=== PATIENT | male | born 1935 | race Caucasian/White ===

== ENCOUNTER 2018-11-16 19:57 | Inpatient (IN) | payer MEDICARE, OTHER ==
[2018-11-16] MEDS ORDERED: traMADol HCl 50 MG TAB PO PRN (22:03)
[2018-11-16] MEDS ORDERED: Dextrose 5% in Water 1,000 ML IV PRN (22:07)
[2018-11-16] MEDS ORDERED: Dextrose 50% Abboject 50 ML SYRINGE IVP PRN (22:07)
[2018-11-16] MEDS ORDERED: Nitroglycerin 0.4 MG TAB (25 Tab Bottle) SL PRN (22:08)
[2018-11-16] MEDS ORDERED: Metoprolol Tartrate 25 MG TAB PO SCH ×2 (22:30→23:00)
[2018-11-16] MEDS ORDERED: rOPINIRole HCl 0.25 MG TAB PO SCH ×2 (22:45→23:00)
[2018-11-16] MEDS ORDERED: Atorvastatin Calcium 10 MG TAB PO SCH (22:45)
[2018-11-16] MEDS ORDERED: Meclizine HCl 25 MG TAB PO SCH (23:00)
[2018-11-16] MEDS ORDERED: Lantus 1000 UNITS/10 ML VIAL SC SCH (23:00)
[2018-11-16] MEDS: HumaLOG 300 UNITS/3 ML VIAL SC PRN (23:05)
[2018-11-17 05:51] LABS: ALT (SGPT) 18 U/L (8-55); AST (SGOT) 26 U/L (5-34); Albumin 3.4 g/dL (3.4-4.8); Alkaline Phosphatase 65 U/L (40-150); Anion Gap 17 mmol/L (10-20); BUN (Urea Nitrogen) 25 mg/dL (8.4-25.7); Calc. Creatinine Clearance 60 mL/min (70-130); Calcium 9.1 mg/dL (7.8-10.44); Carbon Dioxide 25 mmol/L (23-31); Chloride 99 mmol/L (98-107); Estimated GFR-MDRD 63; Globulin 3.4 g/dL (2.4-3.5); Glucose 224 mg/dL (83-110); Potassium 3.6 mmol/L (3.5-5.1); Protein, Total 6.8 g/dL (5.8-8.1); Sodium 137 mmol/L (136-145)
[2018-11-17 05:53] LABS: Bilirubin, Total 0.4 mg/dL (0.2-1.2)
[2018-11-17 06:08] LABS: Eosinophils 4 % (0-10); Hemoglobin 10.3 g/dL (14.0-18.0); Hypochromia SLIGHT = 6-15 cells (100X) (0-5/hpf); Lymphocytes 26 % (21-51); MDiff Complete? YES; Macrocytosis SLIGHT = 6-15 cells (100X) (0-5/hpf); Mean Corpuscular HGB CONC 33.1 g/dL (32.0-36.0); Mean Corpuscular Hemoglobin 29.7 pg (27.0-31.0); Mean Corpuscular Volume 89.8 fL (78.0-98.0); Mean Platelet Volume 7.4 fL (7.4-10.4); Microcytosis SLIGHT = 6-15 cells (100X) (0-5/hpf); Monocytes 6 % (0-10); Neutrophil 56 % (42-75); Platelet Count 250 thou/uL (130-400); Platelet Morphology Comment Appears Adequate; RBC Distribution Width 12.8 % (11.5-14.5); RBC Morphology Abnormal; Reactive Lymphocytes 8 % (0-10); Red Blood Cell (RBC) Count 3.46 mill/uL (4.70-6.10); White Blood Cell (WBC) Count 7.9 thou/uL (4.8-10.8)
[2018-11-17] MEDS: Potassium Chloride 10 MEQ TAB PO SCH (08:12)
[2018-11-17] MEDS: HumaLOG 300 UNITS/3 ML VIAL SC PRN ×4 (08:20→20:52)
[2018-11-17] MEDS: Metoprolol Tartrate 25 MG TAB PO SCH ×2 (08:21→20:52)
[2018-11-17] MEDS: Aspirin Chewable 81 MG TAB PO SCH (08:21)
[2018-11-17] MEDS: metFORMIN 500 MG TAB PO SCH ×2 (08:21→16:14)
[2018-11-17] MEDS: Multivitamin W/ Minerals 1 TAB PO SCH (08:21)
[2018-11-17] MEDS: FLUoxetine HCl 20 MG CAP PO SCH (08:21)
[2018-11-17] MEDS ORDERED: Loratadine 10 MG TAB PO PRN (09:00)
[2018-11-17] MEDS: Meclizine HCl 25 MG TAB PO SCH ×2 (09:09→20:51)
--- NOTE | 2018-11-17 14:38 | HP ---
CHIEF COMPLAINT: Weakness and deconditioning following bypass surgery to the heart. HISTORY OF PRESENT ILLNESS: The patient is a very pleasant 83-year-old white male, who has a history of hypertension, coronary artery disease, diabetes type 2 insulin requiring, and hyperlipidemia. He has previously undergone 5 stents to his heart, but recently had a stress test that was abnormal. He was admitted to [facility] on 11/09. The patient found that his stents had occluded. On 11/12/2018 , the patient underwent a coronary artery bypass x5. Postop course was unremarkable. The patient though was left very weak and needing assistance with his ADLs and had still some gait abnormality. He was walking with the use of a walker. His daughter said that he had just a little bit of confusion, which was improving. The patient was transferred to [facility] on the evening of 11/16/2018 for purpose of physical therapy and occupational therapy while he convalesces from his recent heart surgery. The patient was seen early on the morning of 11/17/2018. He said he is doing better, just still weak. His daughter said his memory is still not quite back to normal, but much better. The patient said he is just sore along the sternal incision, otherwise he thinks he is doing good. PAST HISTORY: Coronary artery disease stents x5 been placed in 2016. These currently had occluded and the patient became symptomatic and underwent coronary artery bypass x5 on 11/12/2018, diabetes type 2 insulin requiring and complicated by insulin resistance requiring large dose of Lantus and Humalog, hypertension, hyperlipidemia, diverticulosis of the colon, restless legs syndrome, peripheral neuropathy, and generalized osteoarthritis. The patient has had recurrent pneumothorax on the left chest and required surgery with talc pleurodesis. The patient has also had surgery on his right knee, left ankle. During his recent admission, he underwent a heart catheterization that showed severe three-vessel coronary artery disease. Echo showed EF of 60% and inferior and anterior hypokinesis. No significant valve disease. PRESENT MEDICINES: 1. Aspirin 81 mg daily. 2. Atorvastatin 10 mg at bedtime. 3. Fluoxetine 20 mg daily. 4. Lantus 85 units subcu at bedtime. 5. Humalog. The patient says at home he was using a sliding scale that was usually 20 insulin before meals and at times, would require more. Could not remember exactly how this was done at home. 6. Theragran-M one a day. 7. Loratadine 10 mg daily p.r.n. 8. Meclizine 12.5 mg b.i.d. 9. Metformin 500 mg b.i.d. 10. Metoprolol tartrate 25 mg b.i.d. 11. Nitroglycerin 0.4 mg sublingual every 5 minutes p.r.n. chest pain. 12. Klor-Con 10 mEq daily. 13. Ropinirole, that is Requip 0.25 mg at bedtime. 14. Tramadol 50 mg one or two every 8 hours as needed for pain. ALLERGIES: DULAGLUTIDE, TICAGRELOR, AND TETANUS. REVIEW OF SYSTEMS: GENERAL: The patient said he is doing better, just still weak and having soreness in his anterior chest. HEAD AND NECK: No complaints. PULMONARY: No shortness of breath. CARDIOVASCULAR: Just a soreness along the sternal incision. GASTROINTESTINAL: No nausea, vomiting, or change in bowel habits. GENITOURINARY: No problem. ADLS: The patient was independent of his ADLs, would still manage his instrumental ADLs. HABITS: The patient stopped smoking in 1984. Alcohol, none. SOCIAL HISTORY: The patient is . The patient says he lives alone, but has family that lives close. CODE STATUS: Full code. PHYSICAL EXAMINATION: GENERAL: Shows a very pleasant 83-year-old white male, who is sitting up on the side of the bed. He is alert and talkative. Recognized me. He appears in no acute distress. VITAL SIGNS: Show a temperature of 97.4, pulse 99, respirations 16, O2 saturation 96% on 2 L, blood pressure 129/62. His weight is 185. HEENT: His head is normocephalic and atraumatic. Ears, normal. Nose, normal. Mouth and throat, normal. NECK: Carotids are equal and strong. No bruits. Thyroid, not enlarged. LUNGS: Clear. HEART: Regular rate. No murmurs. CHEST: The patient has a sternal incision and is healing well, and there are 2 incisions in the xiphoid area from the chest tubes, that have been removed that are healing. ABDOMEN: Soft and nontender. EXTREMITIES: No edema. NEUROLOGIC: The patient has generalized weakness, but nonfocal. He is oriented to place and situation, but has a little trouble remembering some of his historical information. IMPRESSION: 1. Generalized weakness and deconditioning. a. Following coronary artery bypass surgery x5 on 11/12/2018. b. Complicated by gait abnormality, stabilized with a walker. 2. Status post hospitalization at [facility] from 11/09 to 11/16/2018 for severe triple-vessel coronary artery disease, for which he underwent coronary artery bypass x5 on 11/12/2018. 3. Coronary artery disease. a. Status post stent placement, 2016. b. Heart catheterization on 11/09/2018 showed severe triple-vessel disease and blockage of stents. c. Status post coronary artery bypass surgery x5 on 11/12/2018. d. Doing well other than the deconditioning as of 11/17/2018. 4. Diabetes mellitus type 2. a. Insulin-dependent and complicated by insulin resistance. b. Complicated by peripheral neuropathy. 5. Hypertension. 6. Hyperlipidemia. 7. Restless legs syndrome. 8. Allergic rhinitis. 9. Diverticulosis of the colon. PLAN: The patient has been admitted to [facility] for purpose of physical therapy and occupational therapy. We will place him back on his usual medication. We will continue his Lantus 85 units at night. He was taking Humalog at home, but was unsure of the dosage. His records indicate that this is on a sliding scale before meals that ranged from 17 to 40 units. The patient is a full code. See orders. Job ID: [id number] MTDD
[2018-11-17] MEDS: traMADol HCl 50 MG TAB PO PRN ×2 (16:18→23:36)
[2018-11-17] MEDS: Acetaminophen 325 MG TAB PO PRN ×2 (16:18→20:53)
[2018-11-17] MEDS: Atorvastatin Calcium 10 MG TAB PO SCH (20:49)
[2018-11-17] MEDS: Lantus 1000 UNITS/10 ML VIAL SC SCH (20:50)
[2018-11-17] MEDS: rOPINIRole HCl 0.25 MG TAB PO SCH (20:52)
[2018-11-18] MEDS ORDERED: Meclizine HCl 25 MG TAB PO PRN (08:18)
[2018-11-18] MEDS: Potassium Chloride 10 MEQ TAB PO SCH (08:30)
[2018-11-18] MEDS: FLUoxetine HCl 20 MG CAP PO SCH (08:30)
[2018-11-18] MEDS: Multivitamin W/ Minerals 1 TAB PO SCH (08:31)
[2018-11-18] MEDS: Aspirin Chewable 81 MG TAB PO SCH (08:31)
[2018-11-18] MEDS: Metoprolol Tartrate 25 MG TAB PO SCH ×2 (08:31→20:01)
[2018-11-18] MEDS: metFORMIN 500 MG TAB PO SCH ×2 (08:31→17:34)
[2018-11-18] MEDS: HumaLOG 300 UNITS/3 ML VIAL SC PRN ×3 (08:33→21:24)
--- NOTE | 2018-11-18 10:13 | PRG ---
DATE OF SERVICE: 11/18/2018 SUBJECTIVE: The patient has been up already, walking some with physical therapy. He is now sitting in his chair, drinking coffee. Says he is feeling good, started to stand with and said he was little restless in the night. Said he is having just a little bit of confusion that has been present since his surgery prior to the hospitalization. He did have a little trouble with memory, but this is a lot different. He thinks it is better. OBJECTIVE: GENERAL: The patient is sitting up in a chair. He is alert, recognizes me, appears comfortable, and in no distress. VITAL SIGNS: Shows a temperature of 96.7, pulse 80, respirations 14, O2 saturation 94% on 2 L, blood pressure 126/61. LUNGS: Clear. HEART: Regular rate. EXTREMITIES: No edema. CHEST: The sternal incision is healing. There is no drainage. No surrounding redness. LABORATORY DATA: His hemoglobin A1c was 10. His FBS this morning was 169. ASSESSMENT: 1. Generalized weakness and deconditioning. a. Following coronary artery bypass surgery x5 on 11/12/2018. b. Complicated by gait abnormality, stabilized with a walker. c. Improved as of 11/18/2018. 2. Status post hospitalization at [facility] from 11/09 to 11/16/2018 for severe triple-vessel coronary artery disease, for which he underwent coronary artery bypass x5 on 11/12/2018. 3. Coronary artery disease. a. Status post stent placement, 2016. b. Heart catheterization on 11/09/2018 showed severe triple-vessel disease and blockage of stents. c. Status post coronary artery bypass surgery x5 on 11/12/2018. d. Doing well other than the deconditioning as of . 4. Diabetes mellitus type 2. a. Insulin-dependent and complicated by insulin resistance. b. Complicated by peripheral neuropathy. c. Hemoglobin A1c 10, on 11/17/2018. 5. Hypertension. 6. Hyperlipidemia. 7. Restless legs syndrome. 8. Allergic rhinitis. 9. Diverticulosis of the colon. 10. Mild confusion. a.This has occurred since his surgery, suspect this is anesthesia related and change of routine. b. Gradual improvement as of 11/18/2018. PLAN: Continue present care. Continue physical therapy. We will change his meclizine to as needed. We will start the patient on 5 units of Humalog before meals plus his sliding scale. Job ID: [id number] MTDD
[2018-11-18] MEDS: HumaLOG 300 UNITS/3 ML VIAL SC SCH ×3 (11:41→21:23)
[2018-11-18] MEDS: Atorvastatin Calcium 10 MG TAB PO SCH (20:01)
[2018-11-18] MEDS: rOPINIRole HCl 0.25 MG TAB PO SCH (20:01)
[2018-11-18] MEDS: Lantus 1000 UNITS/10 ML VIAL SC SCH (21:24)
[2018-11-19] MEDS: FLUoxetine HCl 20 MG CAP PO SCH (08:32)
[2018-11-19] MEDS: Multivitamin W/ Minerals 1 TAB PO SCH (08:32)
[2018-11-19] MEDS: metFORMIN 500 MG TAB PO SCH ×2 (08:32→17:08)
[2018-11-19] MEDS: Aspirin Chewable 81 MG TAB PO SCH (08:32)
[2018-11-19] MEDS: Potassium Chloride 10 MEQ TAB PO SCH (08:32)
[2018-11-19] MEDS: Metoprolol Tartrate 25 MG TAB PO SCH ×2 (08:32→20:49)
[2018-11-19] MEDS: HumaLOG 300 UNITS/3 ML VIAL SC SCH ×4 (08:33→20:53)
[2018-11-19] MEDS ORDERED: Melatonin 3 MG TAB PO PRN (08:40)
--- NOTE | 2018-11-19 11:29 | PRG ---
DATE OF SERVICE: 11/19/2018 SUBJECTIVE: The patient said he is doing good. He is making progress with his physical therapy. This morning, his blood sugar was 88, and his Humalog was held. His appetite has been good. He has had no chest pain other than soreness in the sternal incision, but this is improving. He has had no shortness of breath. OBJECTIVE: GENERAL: The patient is sitting up and is eating good breakfast, appears comfortable, in no distress. VITAL SIGNS: His temperature is 98, pulse 86, respirations 14, O2 saturation 91 % on room air, and blood pressure 143/75. LUNGS: Clear. HEART: Regular rate. Sternal incision healing. LOWER EXTREMITIES: No edema. LABORATORY DATA: His FBS at bedtime was 221, this morning was 88. ASSESSMENT: 1. Generalized weakness and deconditioning. a. Following coronary artery bypass surgery x5 on 11/12/2018. b. Complicated by gait abnormality, stabilized with a walker. c. Improved as of 11/19/2018. 2. Status post hospitalization at [facility] from 11/09 to 11/16/2018 for severe triple-vessel coronary artery disease, for which he underwent coronary artery bypass x5 on 11/12/2018. 3. Coronary artery disease. a. Status post stent placement, 2015. b. Heart catheterization on 11/09/2018 showed severe triple-vessel disease and blockage of stents. c. Status post coronary artery bypass surgery x5 on 11/12/2018. d. Improving as of 11/19/2018. 4. Diabetes mellitus type 2. a. Insulin-dependent and complicated by insulin resistance. b. Complicated by peripheral neuropathy. c. Hemoglobin A1c 10, on 11/17/2018. 5. Hypertension. 6. Hyperlipidemia. 7. Restless legs syndrome. 8. Allergic rhinitis. 9. Diverticulosis of the colon. 10. Mild confusion. a.This has occurred since his surgery, suspect this is anesthesia related and change of routine. b. Gradual improvement as of 11/19/2018. 11. Insomnia. PLAN: Continue present care. We will add melatonin at bedtime for sleep. Continue PT and OT. Job ID: [id number] MTDD
[2018-11-19] MEDS: HumaLOG 300 UNITS/3 ML VIAL SC PRN ×2 (12:12→17:08)
[2018-11-19] MEDS: rOPINIRole HCl 0.25 MG TAB PO SCH (20:49)
[2018-11-19] MEDS: Atorvastatin Calcium 10 MG TAB PO SCH (20:49)
[2018-11-19] MEDS: Lantus 1000 UNITS/10 ML VIAL SC SCH (20:57)
[2018-11-20] MEDS: Metoprolol Tartrate 25 MG TAB PO SCH ×2 (08:22→21:15)
[2018-11-20] MEDS: Potassium Chloride 10 MEQ TAB PO SCH (08:22)
[2018-11-20] MEDS: FLUoxetine HCl 20 MG CAP PO SCH (08:22)
[2018-11-20] MEDS: metFORMIN 500 MG TAB PO SCH ×2 (08:22→17:03)
[2018-11-20] MEDS: Aspirin Chewable 81 MG TAB PO SCH (08:22)
[2018-11-20] MEDS: Multivitamin W/ Minerals 1 TAB PO SCH (08:22)
[2018-11-20] MEDS: HumaLOG 300 UNITS/3 ML VIAL SC SCH ×4 (08:27→21:16)
[2018-11-20] MEDS: traMADol HCl 50 MG TAB PO PRN (19:57)
[2018-11-20] MEDS: rOPINIRole HCl 0.25 MG TAB PO SCH (21:14)
[2018-11-20] MEDS: Atorvastatin Calcium 10 MG TAB PO SCH (21:14)
[2018-11-20] MEDS: Lantus 1000 UNITS/10 ML VIAL SC SCH (21:15)
[2018-11-21] MEDS: metFORMIN 500 MG TAB PO SCH ×2 (08:17→16:56)
[2018-11-21] MEDS: Potassium Chloride 10 MEQ TAB PO SCH (08:17)
[2018-11-21] MEDS: Aspirin Chewable 81 MG TAB PO SCH (08:18)
[2018-11-21] MEDS: FLUoxetine HCl 20 MG CAP PO SCH (08:18)
[2018-11-21] MEDS: Metoprolol Tartrate 25 MG TAB PO SCH ×2 (08:18→20:37)
[2018-11-21] MEDS: Multivitamin W/ Minerals 1 TAB PO SCH (08:18)
[2018-11-21] MEDS: HumaLOG 300 UNITS/3 ML VIAL SC SCH ×4 (08:19→21:40)
[2018-11-21] MEDS: Atorvastatin Calcium 10 MG TAB PO SCH (20:36)
[2018-11-21] MEDS: rOPINIRole HCl 0.25 MG TAB PO SCH (20:37)
[2018-11-21] MEDS: Lantus 1000 UNITS/10 ML VIAL SC SCH (21:27)
[2018-11-21] MEDS ORDERED: HumaLOG 300 UNITS/3 ML VIAL SC PRN (21:38)
[2018-11-22] MEDS: HumaLOG 300 UNITS/3 ML VIAL SC SCH ×3 (08:16→17:08)
[2018-11-22] MEDS: Aspirin Chewable 81 MG TAB PO SCH (08:17)
[2018-11-22] MEDS: Potassium Chloride 10 MEQ TAB PO SCH (08:17)
[2018-11-22] MEDS: metFORMIN 500 MG TAB PO SCH ×2 (08:17→17:07)
[2018-11-22] MEDS: Multivitamin W/ Minerals 1 TAB PO SCH (08:17)
[2018-11-22] MEDS: Metoprolol Tartrate 25 MG TAB PO SCH ×2 (08:17→20:30)
[2018-11-22] MEDS: FLUoxetine HCl 20 MG CAP PO SCH (08:17)
--- NOTE | 2018-11-22 08:21 | PRG ---
DATE OF SERVICE: 11/20/2018 SUBJECTIVE: The patient thinks he is doing good today. Nights still a little rough. He was started on melatonin last night, not sure it helped much. He is not having any breathing trouble. He is only using his oxygen supplementation intermittently. OBJECTIVE: GENERAL: The patient is sitting up in a chair. He is alert, talkative, appears comfortable, and in no distress. VITAL SIGNS: His temp is 97.5, pulse 84, respirations 20, O2 saturation 96% on 2 L, blood pressure 125/59. LUNGS: Clear. HEART: Regular rate. EXTREMITIES: No edema. His FBS yesterday morning was 88, this morning is 90, before lunch 212, before supper 169, and before bedtime 302. ASSESSMENT: 1. Generalized weakness and deconditioning. a. Following coronary artery bypass surgery x5 on 11/12/2018. b. Complicated by gait abnormality, stabilized with a walker. c. Improved as of 11/20/2018. 2. Status post hospitalization at [facility] from 11/09 to 11/16/2018 for severe triple-vessel coronary artery disease, for which he underwent coronary artery bypass x5 on 11/12/2018. 3. Coronary artery disease. a. Status post stent placement, 2015. b. Heart catheterization on 11/09/2018 showed severe triple-vessel disease and blockage of stents. c. Status post coronary artery bypass surgery x5 on 11/12/2018. d. Improving as of 11/20/2018. 4. Diabetes mellitus type 2. a. Insulin-dependent and complicated by insulin resistance. b. Complicated by peripheral neuropathy. c. Hemoglobin A1c 10, on 11/17/2018. d. Control improving as of 11/20. 5. Hypertension. 6. Hyperlipidemia. 7. Restless legs syndrome. 8. Allergic rhinitis. 9. Diverticulosis of the colon. 10. Mild confusion. a.This has occurred since his surgery, suspect this is anesthesia related and change b. Gradual improvement as of 11/20/2018. 11. Insomnia. PLAN: Continue present care. Continue PT and OT. Job ID: [id number] MTDD
--- NOTE | 2018-11-22 11:05 | PRG ---
DATE OF SERVICE: 11/22/2018 SUBJECTIVE: The patient said he is doing better. He is walking further, getting up easier. He is still using the oxygen occasionally at nighttime, but after he walks, his O2 saturation is up to 97% on room air. His daughter said he still has a little bit of episodes of confusion, but overall it is better. OBJECTIVE: GENERAL: The patient is just returning from his walk. He is alert, talkative, appears very comfortable, in no distress. VITAL SIGNS: His temperature is 98.1, pulse 79, respirations 20, O2 saturation 93% on room air with 2 L,O2 sat 91% on room air. His O2 saturation after walking 97%, blood pressure 125/61. LUNGS: Clear. HEART: Regular rate. LABORATORY DATA: His FBS yesterday morning was 107, at lunch 187, at supper 99 , and bedtime 243. ASSESSMENT: 1. Generalized weakness and deconditioning. a. Following coronary artery bypass surgery x5 on 11/12/2018. b. Complicated by gait abnormality, stabilized with a walker. c. Improved, walking further with his rolling walker and standby assistance. Transferring with minimal assistance as of 11/22/2018. 2. Status post hospitalization at [facility] from 11/09 to 11/16/2018 for severe triple-vessel coronary artery disease, for which he underwent coronary artery bypass x5 on 11/12/2018. 3. Coronary artery disease. a. Status post stent placement, 2016. b. Heart catheterization on 11/09/2018 showed severe triple-vessel disease and blockage of stents. c. Status post coronary artery bypass surgery x5 on 11/12/2018. d. Improving as of 11/20/2018. 4. Diabetes mellitus type 2. a. Insulin-dependent and complicated by insulin resistance. b. Complicated by peripheral neuropathy. c. Hemoglobin A1c 10, on 11/17/2018. 5. Hypertension. 6. Hyperlipidemia. 7. Restless legs syndrome. 8. Allergic rhinitis. 9. Diverticulosis of the colon. 10. Mild confusion. a.This has occurred since his surgery, suspect this is anesthesia related and change of routine. b. Gradual improvement as of 11/20/2018. 11. Insomnia. PLAN: Continue PT, OT. Discontinue the oxygen since his lowest levels have only been 91% on room air. Job ID: [id number] [facility]
[2018-11-22] MEDS: rOPINIRole HCl 0.25 MG TAB PO SCH (20:30)
[2018-11-22] MEDS: Atorvastatin Calcium 10 MG TAB PO SCH (20:30)
[2018-11-22] MEDS: Lantus 1000 UNITS/10 ML VIAL SC SCH (20:36)
[2018-11-23] MEDS: Metoprolol Tartrate 25 MG TAB PO SCH ×2 (08:56→19:54)
[2018-11-23] MEDS: metFORMIN 500 MG TAB PO SCH ×2 (08:56→17:04)
[2018-11-23] MEDS: Potassium Chloride 10 MEQ TAB PO SCH (08:56)
[2018-11-23] MEDS: Multivitamin W/ Minerals 1 TAB PO SCH (08:56)
[2018-11-23] MEDS: HumaLOG 300 UNITS/3 ML VIAL SC SCH ×3 (08:57→17:03)
[2018-11-23] MEDS: Aspirin Chewable 81 MG TAB PO SCH (08:57)
[2018-11-23] MEDS: FLUoxetine HCl 20 MG CAP PO SCH (08:57)
--- NOTE | 2018-11-23 11:29 | PRG ---
DATE OF SERVICE: 11/23/2018 SUBJECTIVE: The patient is doing better. He is doing better with his walking. OBJECTIVE: GENERAL: The patient is sitting up in a chair, just returning from his walk. VITAL SIGNS: His temperature is 97.6, pulse 80, respirations 14, O2 saturation 97% on room air, and blood pressure 104/51. LUNGS: Excellent breath sounds. Lungs clear. HEART: Regular rate. EXTREMITIES: No edema. ASSESSMENT: 1. Generalized weakness and deconditioning. a. Following coronary artery bypass surgery x5 on 11/12/2018. b. Complicated by gait abnormality, stabilized with a walker. c. Improved, walking further with his rolling walker and standby assistance. Transferring with minimal assistance as of 11/23/2018. 2. Status post hospitalization at [facility] from 11/09 to 11/16/2018 for severe triple-vessel coronary artery disease, for which he underwent coronary artery bypass x5 on 11/12/2018. 3. Coronary artery disease. a. Status post stent placement, 2015. b. Heart catheterization on 11/09/2018 showed severe triple-vessel disease and blockage of stents. c. Status post coronary artery bypass surgery x5 on 11/12/2018. d. Improving as of 11/23/2018. 4. Diabetes mellitus type 2. a. Insulin-dependent and complicated by insulin resistance. b. Complicated by peripheral neuropathy. c. Hemoglobin A1c 10, on 11/17/2018. 5. Hypertension. 6. Hyperlipidemia. 7. Restless legs syndrome. 8. Allergic rhinitis. 9. Diverticulosis of the colon. 10. Mild confusion. a.This has occurred since his surgery, suspect this is anesthesia related and change of routine. b.Continued improvement as of 11/23/2018. 11. Insomnia. PLAN: Continue present care. The patient's FBS yesterday at bedtime 138, yesterday morning was 69. Continue PT. Continue the NovoLog before meals. We will discontinue the sliding scale and use only the 5 units before meals. Job ID: [id number] MTDD
[2018-11-23] MEDS: traMADol HCl 50 MG TAB PO PRN (19:52)
[2018-11-23] MEDS: rOPINIRole HCl 0.25 MG TAB PO SCH (19:54)
[2018-11-23] MEDS: Atorvastatin Calcium 10 MG TAB PO SCH (19:54)
[2018-11-23] MEDS: Lantus 1000 UNITS/10 ML VIAL SC SCH (20:26)
[2018-11-24] MEDS: HumaLOG 300 UNITS/3 ML VIAL SC SCH ×3 (08:12→16:48)
[2018-11-24] MEDS: Aspirin Chewable 81 MG TAB PO SCH (08:14)
[2018-11-24] MEDS: Metoprolol Tartrate 25 MG TAB PO SCH ×2 (08:14→20:33)
[2018-11-24] MEDS: Multivitamin W/ Minerals 1 TAB PO SCH (08:14)
[2018-11-24] MEDS: Potassium Chloride 10 MEQ TAB PO SCH (08:14)
[2018-11-24] MEDS: metFORMIN 500 MG TAB PO SCH ×2 (08:14→16:48)
[2018-11-24] MEDS: FLUoxetine HCl 20 MG CAP PO SCH (08:14)
--- NOTE | 2018-11-24 11:31 | PRG ---
DATE OF SERVICE: 11/24/2018 SUBJECTIVE: The patient said he is doing real good. He is having no shortness of breath. His chest feels better. He is walking further using his walker, just standby assistance. OBJECTIVE: GENERAL: The patient is alert. He is standing, holding on to his walker after walking quite a distance. He appears very comfortable, in no distress. VITAL SIGNS: His temperature is 97.3, pulse 77, respirations are 14, O2 saturation 95% on room air, blood pressure 126/65. LUNGS: Clear. HEART: Regular rate. Sternal incision healing. EXTREMITIES: No edema. LABORATORY DATA: His FBS this morning was 68, last night before supper 163. The Humalog that he gets a.c., will be held any time glucose less than 100. ASSESSMENT: 1. Generalized weakness and deconditioning. a. Following coronary artery bypass surgery x5 on 11/12/2018. b. Complicated by gait abnormality, stabilized with a walker. c. Improved, walking further with his rolling walker and standby assistance. Transferring with minimal assistance as of 11/24/2018. 2. Status post hospitalization at [facility] from 11/09 to 11/16/2018 for severe triple-vessel coronary artery disease, for which he underwent coronary artery bypass x5 on 11/12/2018. 3. Coronary artery disease. a. Status post stent placement, 2015. b. Heart catheterization on 11/09/2018 showed severe triple-vessel disease and blockage of stents. c. Status post coronary artery bypass surgery x5 on 11/12/2018. d. Improving as of 11/24/2018. 4. Diabetes mellitus type 2. a. Insulin-dependent and complicated by insulin resistance. b. Complicated by peripheral neuropathy. c. Hemoglobin A1c 10, on 11/17/2018. 5. Hypertension. 6. Hyperlipidemia. 7. Restless legs syndrome. 8. Allergic rhinitis. 9. Diverticulosis of the colon. 10. Mild confusion. a.This has occurred since his surgery, suspect this is anesthesia related and change of routine. b. Resolving as of 11/24/2018. 11. Insomnia. PLAN: Continue present care. Continue PT. Visit with the patient's daughter and potentially plan to discharge the patient to his home on Thursday, 11/26. His daughter will be staying with him and assist, and Home Health will look in on him. Job ID: [id number] MTDTavia
[2018-11-24] MEDS: Mag-Al Plus 1200 MG/1200 MG/120 MG/30 ML UDCUP PO PRN (19:13)
[2018-11-24] MEDS: rOPINIRole HCl 0.25 MG TAB PO SCH (20:33)
[2018-11-24] MEDS: Atorvastatin Calcium 10 MG TAB PO SCH (20:33)
[2018-11-24] MEDS: Lantus 1000 UNITS/10 ML VIAL SC SCH (20:34)
[2018-11-25] MEDS ORDERED: Acetaminophen 325 MG TAB PO PRN (03:31)
[2018-11-25] MEDS: Mag-Al Plus 1200 MG/1200 MG/120 MG/30 ML UDCUP PO PRN (03:57)
[2018-11-25] MEDS: Aspirin Chewable 81 MG TAB PO SCH (08:06)
[2018-11-25] MEDS: metFORMIN 500 MG TAB PO SCH ×2 (08:06→16:50)
[2018-11-25] MEDS: Multivitamin W/ Minerals 1 TAB PO SCH (08:06)
[2018-11-25] MEDS: Metoprolol Tartrate 25 MG TAB PO SCH ×2 (08:06→21:03)
[2018-11-25] MEDS: Potassium Chloride 10 MEQ TAB PO SCH (08:06)
[2018-11-25] MEDS: FLUoxetine HCl 20 MG CAP PO SCH (08:07)
[2018-11-25] MEDS: HumaLOG 300 UNITS/3 ML VIAL SC SCH ×3 (08:07→16:50)
--- NOTE | 2018-11-25 10:27 | PRG ---
DATE OF SERVICE: 11/25/2018 SUBJECTIVE: The patient says he is doing good. He has been walking further and getting up easier. He has no complaint this morning. OBJECTIVE: GENERAL: The patient is sitting up in his chair. He is alert, appears comfortable, in no distress. VITAL SIGNS: His temperature is 97.5, pulse 84, respirations 16, O2 saturation 94% on room air, blood pressure 114/57. LUNGS: Clear. HEART: Regular rate. EXTREMITIES: No edema. ASSESSMENT: 1. Generalized weakness and deconditioning. a. Following coronary artery bypass surgery x5 on 11/12/2018. b. Complicated by gait abnormality, stabilized with a walker. c. Improved, walking further with his rolling walker and standby assistance. Transferring with minimal assistance as of 11/25/2018. 2. Status post hospitalization at [facility] from 11/09 to 11/16/2018 for severe triple-vessel coronary artery disease, for which he underwent coronary artery bypass x5 on 11/12/2018. 3. Coronary artery disease. a. Status post stent placement, 2015. b. Heart catheterization on 11/09/2018 showed severe triple-vessel disease and blockage of stents. c. Status post coronary artery bypass surgery x5 on 11/12/2018. d. Improving as of 11/25/2018. 4. Diabetes mellitus type 2. a. Insulin-dependent and complicated by insulin resistance. b. Complicated by peripheral neuropathy. c. Hemoglobin A1c 10, on 11/17/2018. 5. Hypertension. 6. Hyperlipidemia. 7. Restless legs syndrome. 8. Allergic rhinitis. 9. Diverticulosis of the colon. 10. Mild confusion. a.This has occurred since his surgery, suspect this is anesthesia related and change of routine. b. Resolving as of 11/24/2018. 11. Insomnia. PLAN: Continue present care. Continue PT. Tentatively plan on discharge in the morning. Job ID: [id number] MTDD
[2018-11-25 12:57] VITALS: BMI 26.8
[2018-11-25] MEDS: traMADol HCl 50 MG TAB PO PRN (18:22)
[2018-11-25] MEDS: Atorvastatin Calcium 10 MG TAB PO SCH (21:01)
[2018-11-25] MEDS: rOPINIRole HCl 0.25 MG TAB PO SCH (21:01)
[2018-11-25] MEDS: Lantus 1000 UNITS/10 ML VIAL SC SCH (21:13)
[2018-11-26] MEDS: FLUoxetine HCl 20 MG CAP PO SCH (08:09)
[2018-11-26] MEDS: Aspirin Chewable 81 MG TAB PO SCH (08:09)
[2018-11-26] MEDS: Multivitamin W/ Minerals 1 TAB PO SCH (08:09)
[2018-11-26] MEDS: Metoprolol Tartrate 25 MG TAB PO SCH (08:09)
[2018-11-26] MEDS: metFORMIN 500 MG TAB PO SCH (08:09)
[2018-11-26] MEDS: Potassium Chloride 10 MEQ TAB PO SCH (08:10)
[2018-11-26] MEDS: HumaLOG 300 UNITS/3 ML VIAL SC SCH (08:15)
[2018-11-26 08:25] VITALS: BP 126/61; TEMP 96.9
--- NOTE | 2018-11-29 09:34 | DIS ---
DATE OF ADMISSION: 11/16/2018 DATE OF DISCHARGE: 11/26/2018 FINAL DIAGNOSES: 1. Generalized weakness and deconditioning. a. Following coronary artery bypass surgery x5 on 11/12/2018. b. Complicated by gait abnormality, stabilized with a walker. c. Continued improvement. Walking further using his rolling walker and standby assistance and sometimes with no walker. Transferring independently as 2018. 2. Status post hospitalization at [facility] in [place] from 11/09 to 11/16/2018 for severe triple-vessel coronary artery disease, for which he underwent coronary artery bypass x5 on 11/12/2018. 3. Coronary artery disease. a. Status post stent placement, 2016. b. Heart catheterization on 11/09/2018 showed severe triple-vessel disease and blockage of stents. c. Status post coronary artery bypass surgery x5 on 11/12/2018. d. Improving as of 11/26/2018. 4. Diabetes mellitus type 2. a. Insulin-dependent and complicated by insulin resistance. b. Complicated by peripheral neuropathy. c. Hemoglobin A1c 10, on 11/17/2018. 5. Hypertension. 6. Hyperlipidemia. 7. Restless legs syndrome. 8. Allergic rhinitis. 9. Diverticulosis of the colon. 10. Mild confusion. a.This has occurred since his surgery, suspect this is anesthesia related and change of routine. b. Resolving as of 11/26/2018. 11. Insomnia. HISTORY OF PRESENT ILLNESS: The patient is an 83-year-old white male, who has a history of coronary artery disease, for which he has undergone stents in 2016. He has hypertension and diabetes mellitus type 2 that is insulin requiring. He has hyperlipidemia, restless legs syndrome, and diverticulosis of the colon. He lives independently and is independent of all his ADLs. His daughter looks in and assists him if needed. The patient's bread dough mixer is Dr. Euceda, who had recently done further evaluation on him and stress test was abnormal. He underwent heart catheterization that showed blockage of his stents with triple-vessel disease. He was hospitalized at [facility] from 11/09/2018 to 11/16/2018, and underwent a heart catheterization showing severe triple-vessel coronary artery disease, for which he underwent a coronary artery bypass x5 on 11/12/2018. He was left very weak with deconditioning and was sent to [facility] for continued therapy to help improve his weakness, deconditioning, gait, and improve his general functional capabilities. HOSPITAL COURSE: During his hospitalization, his daughter stayed with him. He made very excellent progress with his physical therapy during his stay. He was walking up to 250 feet several times a day with his rolling walker and only just supervision. He was transferring independently, and in fact, in the night, he had gotten up and walked in the hallway with no assistive device on the night of . Overall strength showed marked improvement. He did have a little bit of forgetfulness more than usual for him and just some very mild confusion that was felt to be secondary to his recent surgery. This though improved through his hospitalization, but did not totally resolve. He was primarily using Tylenol for pain. He had used some tramadol, but this had been stopped completely. The sternal incision from his bypass surgery was healing well and the insertion sites of the chest tubes also were healing well. He made excellent progress. His diabetes was well controlled during his stay. On admission, his hemoglobin A1c was 10. He was receiving Lantus 85 units at home, which had been continued and he received this each evening. He was receiving a Humalog aggressive sliding scale. This was modified to where he was receiving 5 units before meals. This seemed to work very well. His fasting blood sugar on the morning of discharge was 83; on the , it was 93; on the , it was 68. The patient's condition improved, such that by 11/26, it was felt he could be managed at home. His daughter will be staying with him and arrangements have been made for [facility] to see him and arrange in-home physical therapy later as his strength improves. He will begin coming to the [facility] for the cardiac rehab program. He will follow up with his primary care physician, Dr. Clemons at [facility], his bread dough mixer, Dr. Euceda, and cardiovascular surgeon, Dr. Lepe. DISPOSITION: 1. Diet: Heart healthy diet. 2. Activities: Ambulate with the use of a walker. Glucometer checks a.c. Home health with [facility] will see him and arrange for in-home PT and OT. MEDICATIONS: 1. Acetaminophen 325 mg two every 4 hours as needed. 2. Maalox 30 mL every 4 hours p.r.n. indigestion. 3. Aspirin 81 mg p.o. daily. 4. Atorvastatin 10 mg daily. 5. Fluoxetine 20 mg daily. 6. Lantus 85 units subcu at bedtime. 7. Humalog 5 units before meals, hold if glucose less than 100. 8. Theragran-M one a day. 9. Loratadine 10 mg daily as needed. 10. Meclizine 12.5 mg b.i.d. if needed. 11. Melatonin 3 mg at bedtime p.r.n. 12. Metformin 500 mg b.i.d. 13. Metoprolol tartrate 25 mg b.i.d. 14. Nitroglycerin 0.4 mg sublingual p.r.n. chest pain. 15. KCl 10 mEq daily. 16. Ropinirole, that is Requip 0.25 mg at bedtime. FOLLOWUP: [facility] will see him and also arrange in-home PT and OT as the strength continues to improve will attend cardiac rehab at [facility]. Primary care physician, Dr. Clemons at [facility] will see him within 2 weeks. Cardiology, Dr. Euceda, the patient will see him within the next 2 weeks. Cardiovascular surgeon, Dr. Mumtaz Lepe, he will see within the next 2 weeks. Prior to his visit with his primary care physician, he will need a CBC and basic metabolic panel. CODE STATUS: Full code. Job ID: [id number] MTDD
== END 2018-11-26 11:35 | disposition home health service (06) | DRG 948 ==
LOC: MADMS 19:57
PROVIDERS: ADMIT Family Medicine; ATTEND Family Medicine
DX: R53.1 Weakness (principal); Z95.1 Presence of aortocoronary bypass graft; I10 Essential (primary) hypertension; I25.10 Atherosclerotic heart disease of native coronary artery without angina pectoris; Z79.4 Long term (current) use of insulin; E78.5 Hyperlipidemia, unspecified; Z95.5 Presence of coronary angioplasty implant and graft; G25.81 Restless legs syndrome; E11.42 Type 2 diabetes mellitus with diabetic polyneuropathy; M19.91 Primary osteoarthritis, unspecified site; R26.89 Other abnormalities of gait and mobility; K57.90 Diverticulosis of intestine, part unspecified, without perforation or abscess without bleeding; J30.9 Allergic rhinitis, unspecified; G47.00 Insomnia, unspecified; R41.0 Disorientation, unspecified; Z79.82 Long term (current) use of aspirin; Z79.84 Long term (current) use of oral hypoglycemic drugs; Z79.899 Other long term (current) drug therapy; Z88.8 Allergy status to other drugs, medicaments and biological substances; Z88.7 Allergy status to serum and vaccine; Z87.891 Personal history of nicotine dependence
CPT/HCPCS: 36415; 36416; 80053; 83036; 85007; 85027; J1815; J8597

== ENCOUNTER 2018-11-30 13:05 | Outpatient (CLI) | payer MEDICARE ==
[2018-11-30 13:21] LABS: #Basophils 0.1 thou/uL (0.0-0.2); #Eosinphils 0.3 thou/uL (0.0-0.7); #Lymphocytes 1.8 thou/uL (1.20-3.40); #Monocytes 0.9 thou/uL (0.11-0.59); #Neutrophils 4.3 thou/uL (1.40-6.50); %Basophils 0.8 % (0.0-1.0); %Eosinophils 4.1 % (0.0-10.0); %Lymphocytes 24.7 % (21.0-51.0); %Monocytes 12.3 % (0.0-10.0); %Neutrophils 58.1 % (42.0-75.0); Hemoglobin 11.3 g/dL (14.0-18.0); Mean Corpuscular HGB CONC 31.7 g/dL (32.0-36.0); Mean Corpuscular Hemoglobin 29.3 pg (27.0-31.0); Mean Corpuscular Volume 92.4 fL (78.0-98.0); Mean Platelet Volume 6.6 fL (7.4-10.4); Platelet Count 348 thou/uL (130-400); Red Blood Cell (RBC) Count 3.85 mill/uL (4.70-6.10); White Blood Cell (WBC) Count 7.3 thou/uL (4.8-10.8)
[2018-11-30 13:50] LABS: Anion Gap 18 mmol/L (10-20); BUN (Urea Nitrogen) 31 mg/dL (8.4-25.7); Calc. Creatinine Clearance 0 mL/min (70-130); Carbon Dioxide 22 mmol/L (23-31); Chloride 104 mmol/L (98-107); Estimated GFR-MDRD 75; Glucose 154 mg/dL (83-110); Potassium 4.7 mmol/L (3.5-5.1); Sodium 139 mmol/L (136-145)
== END 2018-11-30 13:06 | disposition home or self-care (01) ==
LOC: MADLABBHPM 13:05
PROVIDERS: ATTEND Family Medicine
DX: R53.1 Weakness (principal)
CPT/HCPCS: 80048; 85025

== ENCOUNTER 2020-05-03 13:18 | Emergency (ER) | payer MEDICARE, OTHER ==
[2020-05-03 14:52] LABS: #Basophils 0.1 thou/uL (0.0-0.2); #Eosinphils 0.1 thou/uL (0.0-0.7); #Lymphocytes 1.3 thou/uL (1.20-3.40); #Monocytes 0.8 thou/uL (0.11-0.59); #Neutrophils 7.5 thou/uL (1.40-6.50); %Basophils 0.5 % (0.0-1.0); %Eosinophils 0.8 % (0.0-10.0); %Lymphocytes 13.5 % (21.0-51.0); %Monocytes 8.2 % (0.0-10.0); Hemoglobin 11.5 g/dL (14.0-18.0); Mean Corpuscular HGB CONC 33.6 g/dL (32.0-36.0); Mean Corpuscular Hemoglobin 30.7 pg (27.0-31.0); Mean Corpuscular Volume 91.3 fL (78.0-98.0); Mean Platelet Volume 8.2 fL (7.4-10.4); Platelet Count 232 thou/uL (130-400); RBC Distribution Width 11.2 % (11.5-14.5); Red Blood Cell (RBC) Count 3.74 mill/uL (4.70-6.10); White Blood Cell (WBC) Count 9.7 thou/uL (4.8-10.8)
[2020-05-03 15:06] LABS: ALT (SGPT) 28 U/L (8-55); AST (SGOT) 18 U/L (5-34); Albumin 3.8 g/dL (3.4-4.8); Alkaline Phosphatase 82 U/L (40-110); Anion Gap 14 mmol/L (10-20); BUN (Urea Nitrogen) 16 mg/dL (8.4-25.7); Bilirubin, Total 0.4 mg/dL (0.2-1.2); Calc. Creatinine Clearance 0 mL/min (70-130); Calcium 9.1 mg/dL (7.8-10.44); Carbon Dioxide 25 mmol/L (23-31); Chloride 103 mmol/L (98-107); Globulin 3.3 g/dL (2.4-3.5); Glucose 289 mg/dL (83-110); Potassium 4.3 mmol/L (3.5-5.1); Protein, Total 7.1 g/dL (5.8-8.1); Sodium 138 mmol/L (136-145)
--- NOTE | 2020-05-03 15:16 | RAD ---
LEFT SHOULER RADIOGRAPHS THREE VIEWS: 05/03/20 PROVIDED CLINICAL HISTORY: Shoulder pain. FINDINGS: There is a comminuted, mildly displaced fracture involving the surgical neck of the left proximal hum erus. The glenohumeral relationship appears preserved. No additional fracture is evident. The visuali zed left lung field appears clear. IMPRESSION: Comminuted, displaced left proximal humeral fracture. POS: MAME
--- NOTE | 2020-05-03 15:19 | CT ---
CT BRAIN: DATE: 05/03/2020. PROVIDED CLINICAL HISTORY: Trauma, fall. FINDINGS: The ventricular system appears normal in size and morphology. There is no evidence for intracranial hemorrhage or mass effect. The extracranial soft tissues and osseous structures demonstrate an unrem arkable CT appearance. IMPRESSION: No evidence for intracranial hemorrhage or mass effect. POS: MAME
[2020-05-03] MEDS ORDERED: HYDROcodone/Acetaminophen 10/325 mg Tablet ONE (16:10)
--- NOTE | 2020-05-03 17:22 | CT ---
CT CERVICAL SPINE 05/03/20 PROVIDED CLINICAL HISTORY: Trauma. Slip and fall. Neck pain. FINDINGS: There is no evidence for fracture or traumatic subluxation. Cervical degenerative changes are seen. N o prevertebral soft tissue swelling is evident. Vascular calcifications are seen. 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 IMPRESSION: No evidence for fracture or traumatic subluxation. POS: MAME
== END 2020-05-03 16:20 | disposition home or self-care (01) ==
LOC: MADERS 13:18
DX: S06.0X0A Concussion without loss of consciousness, initial encounter (principal); S42.212A Unspecified displaced fracture of surgical neck of left humerus, initial encounter for closed fracture; S16.1XXA Strain of muscle, fascia and tendon at neck level, initial encounter; E11.9 Type 2 diabetes mellitus without complications; I10 Essential (primary) hypertension
CPT/HCPCS: 23605; 36415; 70450; 72125; 80053; 85025

== ENCOUNTER 2021-03-13 12:38 | Emergency (ER) | payer MEDICARE, OTHER | END 2021-03-13 15:23 | disposition home or self-care (01) | LOC: MADERS 12:38 | DX: S01.111A Laceration without foreign body of right eyelid and periocular area, initial encounter (principal); S51.811A Laceration without foreign body of right forearm, initial encounter; E11.9 Type 2 diabetes mellitus without complications; I10 Essential (primary) hypertension; W13.3XXA Fall through floor, initial encounter | CPT/HCPCS: 12001; 12011; 70450; 70486; 72125 ==